=== PATIENT | male | born 1990 | race Caucasian/White ===

== ENCOUNTER 2020-09-16 10:57 | Emergency (ER) | payer OTHER, SELFPAY ==
--- NOTE | ~2020-09-16 | XR_ITS ---
XR shoulder LT min 2V 09/16/2020 11:14 INDICATION: Left shoulder pain PROCEDURE: 4 views left shoulder COMPARISON: No prior studies for comparison. FINDINGS: Fracture, dislocation or subluxation is not identified. The soft tissues appear within norm al limits. No foreign bodies are identified. IMPRESSION: 1: NO ACUTE BONE OR JOINT ABNORMALITY IDENTIFIED. Reviewed, dictated and finalized at location A.
[2020-09-16 11:02] VITALS: BP 135/85; PULSE 85; RESP 18; TEMP 36.2; O2SAT 99
--- NOTE | 2020-09-16 12:28 | ED.UPPEXIN ---
HPI - Extremity Injury (Upper) General Chief Complaint: Extremity Injury, Upper Stated Complaint: shoulder injury Time Seen by Provider: 09/16/20 11:44 Source: patient Mode of arrival: ambulatory Limitations: no limitations History of Present Illness HPI narrative: This is a 30-year-old male that presents to the emergency department for left shoulder pain after an injury today. Reports he was doing some heavy lifting at work. He felt like there was a pop in his shoulder and has had pain since. Pain is worse when he lifts the arm above his head. Relieved with rest. Denies numbness or weakness. Related Data Allergies Allergy/AdvReac Type Severity Reaction Status Date / Time No Known Allergies Allergy Verified 09/16/20 11:04 Review of Systems Review of Systems: CONSTITUTIONAL: Denies fever MUSCULOSKELETAL: Reports joint pain, and myalgia. NEUROLOGIC: Denies numbness, or weakness. All systems reviewed & are unremarkable except as noted in HPI and below PMFSH Past Medical History Medical History (Updated 09/16/20 @ 12:32 by Madisyn Johnston PA-C) No active medical problems Social History Social History (Updated 09/16/20 @ 12:29 by Madisyn Johnston PA-C) Substance use: never Gender identity (if verbalized by the patient): Male Exam Narrative: GENERAL: Well-appearing, well-nourished, and in no acute distress. HEAD: Normocephalic, atraumatic. EYES: EOMI. EXTREMITIES: Decreased active range of motion in the left shoulder above 90 degrees due to pain. No edema or obvious deformity. Normal radial pulses. Normal sensation SKIN: Warm, dry, no rash. NEURO: No focal deficits. Alert and oriented x3. PSYCH: Normal mood and affect Course Vital Signs Vital signs: Vital Signs Temperature 97.2 F L 09/16/20 11:02 Pulse Rate 85 09/16/20 11:02 Respiratory Rate 18 09/16/20 11:02 Blood Pressure 135/85 09/16/20 11:02 Pulse Oximetry 99 09/16/20 11:02 Temperature 97.2 F L 09/16/20 11:02 Pulse Rate 85 09/16/20 11:02 Respiratory Rate 18 09/16/20 11:02 Blood Pressure 135/85 09/16/20 11:02 Pulse Oximetry 99 08/08/21 11:02 MDM - Extremity Injury (Upper) MDM Narrative Medical decision making narrative: Patient presents emergency department after lifting injury today with left shoulder pain. Is neurovascularly intact. Left shoulder x-rays without acute osseous abnormalities. Patient was instructed on care of her shoulder sprain. He is to follow-up with his primary care doctor. He was given warnings to return to the ER Imaging Data Radiologist's impression: ITS Impressions Shoulder X-Ray 09/16/20 11:19 IMPRESSION: 1: NO ACUTE BONE OR JOINT ABNORMALITY IDENTIFIED. Critical Care Time Critical Care Time Critical Care Time: No Discharge Plan Discharge Clinical Impression: Shoulder sprain Qualifiers: Encounter type: initial encounter Shoulder sprain type: unspecified sprain Laterality: left Qualified Code(s): S43.402A - Unspecified sprain of left shoulder joint, initial encounter Patient Disposition: Home, Self-Care Condition: Stable Instructions: Shoulder Sprain (ED) Additional Instructions: Return to the emergency department if you experience fever, redness and swelling of your arm, numbness, or any other symptoms that are concerning to you Wear sling. No heavy lifting. Ice and elevate extremity. Pain medication as needed and directed. Do make sure to come out of the sling and do range of motion exercises so your shoulder does not get stiff Follow up with your doctor for further care. Prescriptions: No Action fluticasone propionate [Allergy Relief (fluticasone)] 50 mcg/actuation spray,suspension 2 spray NASAL DAILY Qty: 15.8 RF: 0 benzonatate 100 mg capsule 100 mg PO BID PRN (Reason: cough) Qty: 30 RF: 0 Follow-up/Referrals: Manjit,Colt Cavanaugh MD [Primary Care Provider] - 3 Days Stand Alone Forms: Work/School Release IP
[2020-09-16] MEDS: ACETAMINOPHEN 500 MG TABLET 1000 MG PO (12:42)
[2020-09-16 12:43] VITALS: BP 136/88; PULSE 90; RESP 16; O2SAT 98
== END 2020-09-16 12:43 | disposition home or self-care (01) ==
PROVIDERS: Emergency Provider Emergency Medicine; PCP Family Medicine
DX: S43.402A Unspecified sprain of left shoulder joint, initial encounter (principal); X50.0XXA Overexertion from strenuous movement or load, initial encounter
CPT/HCPCS: 73030; 99283; A4565; A9270